=== PATIENT | female | born 2005 | race Two or more races ===

== ENCOUNTER 2023-07-04 12:18 | Emergency (ER) | payer MEDICAID ==
[~2023-07-04] VITALS: Ht 165.1 cm; Wt 87.4 kg
[2023-07-04 13:11] LABS: Basophils # (auto) 0.1 10 ^3/uL (0-0.2); Basophils % (auto) 0.8 % (0.0-2.0); Eosinophils # (auto) 0.1 10 ^3/uL (0-0.8); Eosinophils % (auto) 0.9 % (0.0-7.0); Hematocrit 43.2 % (36.0-46.0); Hemoglobin 14.7 g/dL (12.2-16.2); Lymphocytes # (auto) 2.8 10 ^3/uL (0.4-5.4); Lymphocytes % (auto) 28.1 % (10.0-50.0); Mean Corpuscular Hemoglobin 30.5 pg (28.0-32.0); Mean Corpuscular Hgb Conc. 33.9 g/dL (32.0-36.0); Mean Corpuscular Volume 89.7 fL (80.0-100.0); Monocytes % (auto) 9.9 % (0.0-12.0); Neutrophils % (auto) 60.3 % (37.0-80.0); Nucleated Red Blood Cells % 0.1 %; Red Blood Cells 4.81 10^6/uL (4.0-5.20); Red Cell Distribution Width 13.6 % (11.8-14.3); White Blood Cell 9.9 10^3/uL (4.4-10.8)
[2023-07-04 13:13] LABS: Chloride 105 mmol/L (98-107); Potassium 4.2 mmol/L (3.5-5.1); Sodium 139 mmol/L (136-145)
[2023-07-04 13:14] LABS: Anion Gap 8 (5-15); Calcium 9.7 mg/dL (8.5-10.1); Carbon Dioxide 26 mmol/L (20-30)
[2023-07-04 13:19] LABS: BUN/Creatinine Ratio 13.8 (10.0-20.0); Blood Urea Nitrogen 9 mg/dL (9-23); Glucose 90 mg/dL (74-106)
[2023-07-04 14:04] LABS: Urine Bacteria FEW /hpf (None Seen); Urine Blood 3+ /uL (Negative); Urine Clarity HAZY (Clear); Urine Color Yellow (Yellow); Urine Hyaline Cast FEW /lpf (0 - 2); Urine Mucus FEW (None Seen); Urine Protein, UAD TRACE (Negative); Urine Specific Gravity 1.022 (1.001-1.035); Urine Urobilinogen Normal (Negative); Urine WBC 69 /hpf (0 - 5); Urine pH 5.5 (5.0-8.0)
[2023-07-04] MEDS: cefTRIAXone 1GM/50ML D5W 50 ML IV ONE (16:36)
[2023-07-04] MEDS ORDERED: DOXY-286 PO (16:38)
[2023-07-04 18:22] VITALS: BP 142/93; PULSE 78; RESP 16; TEMP 98.2; O2SAT 96
[2023-07-08 10:06] LABS: Chlamydia Trachomatis, NAA Negative (Negative); Neisseria gonorrhoeae, NAA Negative (Negative)
== END 2023-07-04 18:22 | disposition home or self-care (01) ==
LOC: ER 12:18
DX: O04.5 Genital tract and pelvic infection following (induced) termination of pregnancy (principal); R10.2 Pelvic and perineal pain; N39.0 Urinary tract infection, site not specified; N89.8 Other specified noninflammatory disorders of vagina; A64 Unspecified sexually transmitted disease
CPT/HCPCS: 36415; 76817; 76856; 80048; 81001; 84702; 85025; 86900; 86901; 87491; 87591; 96365; 99285; J0696

== ENCOUNTER 2024-05-20 03:48 | Emergency (ER) | payer MEDICAID ==
[~2024-05-20] VITALS: Ht 165.1 cm; Wt 104.3 kg
[~2024-05-20 03:48] MED LIST: DOXY-286 PO
[2024-05-20] MEDS: ACETAMINOPHEN 325 MG TAB PO ONE (04:24)
[2024-05-20 05:08] LABS: COVID19 ANTIGEN SOFIA FIA NEGATIVE (NEGATIVE)
--- NOTE | 2024-05-20 05:08 | ED.PDOC ---
SOB-HPI HPI Comments 18-YEAR-OLD FEMALE PRESENTS TO THE ED CHIEF COMPLAINT FLU-LIKE SYMPTOMS X2 DAYS. PATIENT REPORTS FEVERS, BODY ACHES, CHILLS, CONGESTION, COUGH, AND HEADACHE. PATIENT STATES HAS BEEN TAKING TYLENOL DAYQUIL NYQUIL AT HOME WITH LITTLE RELIEF. TEMP IN TRIAGE WAS 102.1. DENIES DIFFICULTY BREATHING, CHEST PAIN, SHORTNESS OF BREATH, VOMITING, AND ABDOMINAL PAIN, RECENT TRAVEL OR RECENT ILL CONTACTS. 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 Hx Family History Family History: Reviewed,noncontributory to illness Social History Smoker: Non-Smoker Alcohol: Denies ETOH Use Drugs: Denies Drug Use Physical Exam General Appearance: No Apparent Distress, Normal HEENT: Normal ENT Inspection, Pharynx Normal, TMs Normal Neck: Full Range of Motion, Non-Tender Respiratory: Chest Non-Tender, Lungs Clear, No Respiratory Distress, Normal Breath Sounds Cardiovascular: No Edema, No JVD, No Murmur, No Gallop, Normal Peripheral Pulses, Regular Rate/Rhythm Breast Exam: Deferred Gastrointestinal: No Organomegaly, Non Tender, No Pulsatile Mass, Normal Bowel Sounds, Soft Genitalia: Deferred Pelvic: Deferred Rectal: Deferred Extremities: Normal capillary refill, Normal inspection, Normal range of motion, Non-tender, No pedal edema Musculoskeletal : Apperance: Normal Neurologic: Alert, color maker formulator II-XII nml as Tested, No Motor Deficits, Normal Affect, Normal Mood, No Sensory Deficits Cerebellar Function: Normal Reflexes: Normal Skin: Dry, Normal Color, Warm Lymphatic: No Adenopathy Was a procedure done? Was a procedure done?: No Differential Dx Differential Diagnosis: Bronchitis, Pneumonia X-Ray, Labs, Meds, VS Vital Signs Date Time Temp Pulse Resp B/P (MAP) Pulse Ox O2 Delivery O2 Flow Rate FiO2 05/20/24 05:10 101.5 135 18 126/80 (95) 96 101.5 05/20/24 05:10 135 18 96 Room Air 05/20/24 04:24 102.4 05/20/24 04:10 18 98 Room Air* 0 21 05/20/24 04:10 102.4 148 18 134/78 (96) 98 Lab Test 05/20/24 04:21 Range/Units Influenza Type A Antigen Negative Negative Influenza Type B Antigen Negative Negative SARS-CoV-2 Antigen (Rapid) Negative NEGATIVE Current Medications Medications (Trade) Dose Ordered Sig/Epifanio Route Start Time Stop Time Status Last Admin Acetaminophen (Tylenol Tablet) 650 mg ONCE ONCE PO 05/20/24 04:15 05/20/24 04:16 DC 05/20/24 04:24 X-Ray, Labs, Meds, VS Comment INFLUENZA A AND B SWAB NEGATIVE COVID-19 SWAB NEGATIVE TYLENOL 1 G GIVEN IN TRIAGE FOR FEVER OF 102 IBUPROFEN 800 MG P.O. X1 NOW TEMP ON TRIAGE 100.1 PATIENT STATES SHE FEELS BETTER NOTES IMPROVEMENT REQUESTING DISCHARGE AT THIS TIME. FLU AND COVID SWABS NEGATIVE LIKELY BACTERIAL START PATIENT ON MEDROL DOSEPAK AND AZITHROMYCIN. WE WILL SCRIPT IBUPROFEN 800 MG 1 TAB 3 TIMES A DAY NEEDED FOR PAIN OR FEVER. ADVISED TO REST INCREASE P.O. FLUIDS WITH ELECTROLYTES. FOLLOW UP WITH PCP IN 2-3 DAYS NECESSARY. ER RETURN PRECAUTIONS GIVEN BECKY ENT INDICATED UNDERSTANDING AND AGREES WITH DISCHARGE PLAN OF CARE. Time of 1ST Reevaluation: 05:23 Reevaluation 1ST: Improved Patient Education/Counseling: Diagnosis, Treatment, Prognosis, Need For Follow Up Family Education/Counseling: No Family Present Departure 1 Departure Time of Disposition: 05:20 Impression: Primary Impression: Upper respiratory infection Qualified Codes: J06.9 - Acute upper respiratory infection, unspecified Disposition: HOME / SELF CARE / HOMELESS Condition: Stable e-Prescriptions Ibuprofen (Ibuprofen) 800 Mg Tab 1 TAB PO TID PRN for 4 Days, #12 TAB Prov: TERI CORTEZ 05/20/24 Azithromycin (Azithromycin) 250 Mg Tab 250 MG PO DAILY MDD 500 for 5 Days, #6 TAB 0 Refills 2 TABLETS ORALLY ON DAY ONE, THEN 1 TABLET ORALLY DAILY FOR 4 DAYS Prov: TERI CORTEZ 05/20/24 Methylprednisolone (Medrol Dosepak) 4 Mg Darryl 4 MG PO UD for 6 Days, #21 TAB UAD Prov: TERI CORTEZ 05/20/24 Discharged With: Self Critical Care Note Critical Care Time?: No Stability Stability form required: No Heart Score Heart Score: Heart Score Response (Comments) Value History N/A 0 EKG N/A 0 Age <45 0 Risk Factors N/A 0 Troponin N/A 0 Total 0 TERI CORTEZ [facility] May 20, 2024 05:07
[2024-05-20 05:10] VITALS: BP 126/80; PULSE 135; RESP 18; O2SAT 96
[2024-05-20 05:11] LABS: Rapid Influenza A Negative (Negative); Rapid Influenza B Negative (Negative)
[2024-05-20] MEDS ORDERED: METH4PAK PO (05:22)
[2024-05-20] MEDS ORDERED: AZIT-43 PO (05:22)
[2024-05-20] MEDS ORDERED: IBUP-1456 PO (05:22)
[2024-05-20 05:24] VITALS: TEMP 100.1
[2024-05-20] MEDS: IBUPROFEN 800 MG TAB PO ONE (05:34)
== END 2024-05-20 05:34 | disposition home or self-care (01) ==
LOC: ER 03:48
DX: J06.9 Acute upper respiratory infection, unspecified (principal); Z20.822 Contact with and (suspected) exposure to COVID-19
CPT/HCPCS: 36415; 87426; 87804